=== PATIENT | male | born 1955 | race Caucasian/White ===

== ENCOUNTER 2018-11-17 09:21 | Emergency (ER) | payer OTHER ==
[~2018-11-17] VITALS: Ht 175.3 cm; Wt 134.0 kg
[2018-11-17] MEDS ORDERED: AMLODIPINE5 MG PO (09:32)
[2018-11-17] MEDS ORDERED: HYDROCHLOROT25 MG PO (09:32)
[2018-11-17] MEDS ORDERED: PAROXETINE10 MG PO (09:33)
[2018-11-17] MEDS ORDERED: ZITHROMAX250 MG PO ×2 (09:58→10:17)
[2018-11-17] MEDS ORDERED: TESSALON PER100 MG PO ×2 (09:58→10:17)
[2018-11-17] MEDS ORDERED: PROVENTIL108 MCG/AC IN ×2 (09:58→10:17)
[2018-11-17 10:22] VITALS: BP 158/83
== END 2018-11-17 10:22 | disposition home or self-care (01) | DRG 153 ==
LOC: ED 09:21
DX: J06.9 Acute upper respiratory infection, unspecified (principal); J40 Bronchitis, not specified as acute or chronic; R09.81 Nasal congestion; R09.89 Other specified symptoms and signs involving the circulatory and respiratory systems; R05 Cough; R51 Headache

== ENCOUNTER 2022-05-26 10:40 | Emergency (ER) | payer MEDICARE ==
[~2022-05-26] VITALS: Ht 175.3 cm; Wt 140.7 kg
[~2022-05-26 10:40] MED LIST: AMLODIPINE5 MG PO; ASPIRIN ADULT L81 M3 PO; BRILINTA90 MG PO; HYDROCHLOROT25 MG PO; LIPITOR80 M1 PO; METHOCARBAMOL500 MG PO; PAROXETINE10 MG PO; PROVENTIL108 MCG/AC IN; TESSALON PER100 MG PO; TOPROL XL25 M1 PO; ZITHROMAX250 MG PO
[2022-05-26 11:09] LABS: HEMATOCRIT 42.2 % (39.0-50.0); HEMOGLOBIN 14.1 g/dl (14.0-18.0); IMMATURE GRANULOCYTES 0.3 % (0.0-5.0); MEAN CELL VOLUME 99.5 fL CALC (80.0-100.0); MEAN CORPUSCULAR HGB 33.3 pG CALC (26.0-32.0); MEAN CORPUSCULAR HGB CONC 33.4 g/dL CAL (32.0-36.0); NEUT# 6.04 thou/uL (1.82-7.42); RED BLOOD COUNT 4.24 mill/uL (4.70-6.10); RED CELL DISTRI WIDTH 13.3 % (11.5-15.5)
[2022-05-26 11:17] LABS: PROTHROMBIN TIME 10.4 SECONDS (9.0-12.5)
[2022-05-26 11:21] LABS: ALBUMIN 3.5 g/dL (3.2-5.0); ALKALINE PHOSPHATASE 86 u/l (38-126); ANION GAP 8 (6-22 (CALC)); BILIRUBIN, TOTAL 0.4 mg/dL (0.0-1.4); BUN 10 mg/dL (8-23); BUN/CREATININE RATIO 13 (12-20 (CALC)); CARBON DIOXIDE 29 mmol/l (22-30); CHLORIDE 103 mmol/l (95-108); CREATININE 0.8 mg/dL (0.7-1.3); GFR FOR AFR.AMER. > 60 ML/MIN (>=60 (CALC)); GFR OTHER RACES > 60 ML/MIN (>=60 (CALC)); POTASSIUM 3.8 mmol/l (3.5-5.1); SGOT/AST 21 u/l (19-48); SODIUM 136 mmol/l (137-146); TOTAL PROTEIN 6.3 g/dL (6.3-8.2)
[2022-05-26 11:52] VITALS: BP 148/56
[2022-05-26 12:03] VITALS: BP 55/12
[2022-05-26 12:11] VITALS: BP 120/60
[2022-05-26] MEDS ORDERED: MEDROL4 M1 PO (12:30)
[2022-05-26] MEDS ORDERED: ACYCLOVIR800 MG PO (12:30)
[2022-05-26 12:31] VITALS: BP 127/62
[2022-05-26 12:35] VITALS: BP 127/62
[2022-05-26 12:35] LABS: URINE BILIRUBIN - DIPSTICK NEGATIVE (NEGATIVE); URINE BLOOD DIPSTICK NEGATIVE (NEGATIVE); URINE COLOR YELLOW; URINE GLUCOSE - DIPSTICK NEGATIVE (NEGATIVE); URINE KETONE NEGATIVE (NEGATIVE); URINE LEUK ESTERASE NEGATIVE (NEGATIVE); URINE PROTEIN - DIPSTICK NEGATIVE (NEG-TRACE); URINE SPECIFIC GRAVITY <=1.005; URINE UROBILINOGEN - DIPSTICK 0.2 E.U./dL (0.2)
[2022-05-26 12:37] LABS: URINE NITRITE - DIPSTICK NEGATIVE (Negative)
== END 2022-05-26 13:31 | disposition home or self-care (01) ==
LOC: ED 10:40
PROVIDERS: Internal Medicine
DX: G51.0 Bell's palsy (principal); I10 Essential (primary) hypertension; F41.9 Anxiety disorder, unspecified; I25.2 Old myocardial infarction; E78.5 Hyperlipidemia, unspecified
CPT/HCPCS: Q3014; Q9967

== ENCOUNTER 2022-05-30 13:49 | Observation (INO) | payer OTHER, MEDICARE ==
[~2022-05-30] VITALS: Ht 175.3 cm; Wt 140.7 kg
[2022-05-30] VITALS (28 sets, daily range): BP systolic 101–172; BP diastolic 45–124
[~2022-05-30 13:49] MED LIST changes: +ACYCLOVIR800 MG PO; +MEDROL4 M1 PO
--- NOTE | 2022-05-30 14:21 | NUR ---
PT AMBULATES TO ROOM 8 FOR EVAL OF WORSENING FACIAL DROOP WITH RECENT VISIT FOR BELLS PALSY
[2022-05-30 15:06] LABS: HEMATOCRIT 45.7 % (39.0-50.0); HEMOGLOBIN 14.9 g/dl (14.0-18.0); IMMATURE GRANULOCYTES 0.8 % (0.0-5.0); MEAN CELL VOLUME 101.1 fL CALC (80.0-100.0); MEAN CORPUSCULAR HGB CONC 32.6 g/dL CAL (32.0-36.0); NEUT# 12.87 thou/uL (1.82-7.42); RED BLOOD COUNT 4.52 mill/uL (4.70-6.10); RED CELL DISTRI WIDTH 13.5 % (11.5-15.5)
[2022-05-30 15:13] LABS: ALBUMIN 3.7 g/dL (3.2-5.0); ALKALINE PHOSPHATASE 92 u/l (38-126); ANION GAP 12 (6-22 (CALC)); BILIRUBIN, TOTAL 0.5 mg/dL (0.0-1.4); BUN 17 mg/dL (8-23); BUN/CREATININE RATIO 22 (12-20 (CALC)); CARBON DIOXIDE 26 mmol/l (22-30); CHLORIDE 102 mmol/l (95-108); CREATININE 0.8 mg/dL (0.7-1.3); GFR FOR AFR.AMER. > 60 ML/MIN (>=60 (CALC)); GFR OTHER RACES > 60 ML/MIN (>=60 (CALC)); SGOT/AST 32 u/l (19-48); SODIUM 135 mmol/l (137-146); TOTAL PROTEIN 6.9 g/dL (6.3-8.2)
--- NOTE | 2022-05-30 16:00 | NUR ---
no change from pprevious neuro assessment
--- NOTE | 2022-05-30 17:00 | NUR ---
no change from previous neuro assessment
--- NOTE | 2022-05-30 18:00 | NUR ---
no chnge from previous neuro assessment
[2022-05-30 18:51] LABS: C-REACTIVE PROTEIN < 0.5 mg/dL (0-0.9); CALCULATED LDLCHOLESTEROL 61 mg/dL (62-129 (CALC)); CHOLESTEROL HDL RATIO 4.5 (<4.4 (CALC)); HDL CHOLESTEROL 28 mg/dL (>=40); TOTAL CHOLESTEROL 126 mg/dl (0-199); TOTAL TRIGLYCERIDES 183 mg/dl (30-149); VLDL CHOLESTROL 37 mg/dl (4-45 (CALC))
--- NOTE | 2022-05-30 19:00 | NUR ---
no change from previous neuro assessment
--- NOTE | 2022-05-30 20:15 | NUR ---
PT ARRIVED FROM ER VIA WHEELCHAIR, ON ROOM AIR. PT ALERT AND ORIENTED. FOLLOWING COMMANDS. DENIES BEING IN ANY DISTRESS. PT DOES HAVE A SIGNIFICANT RIGHT SIDED FACIAL DROOP, PT UNABLE TO LIFT HIS BROW, BLINK HIS EYE OR SMILE ON THE RIGHT SIDE. EYE LOOKS QUITE IRRITADED. OFFERED WARM COMPRESS. PLANS TO BRING HIS EYE PATCH TO THE HOSPITAL THIS EVENING. PT DID PASS BEDSIDE SWALLOW EVALUATION AND DID PASS THE EVALUATION. PT CURRENTLY CHANGED FROM NPO TO CARDIAC . VITAL SIGNS WITHIN NORMAL LIMITS. CALL LIGHT AND PERSONAL BELONGINGS WTIHIN REACH. PT BEING CLOSELY MONITORED.
--- NOTE | 2022-05-30 22:00 | NUR ---
SHIFT REASSESSMENT - NO CHANGE IN PTS CONDITION AT THIS TIME. VITAL SIGNS WITHIN NORMAL LIMITS. SAFETY PRECAUTIONS ARE IN PLACE. CALL LIGHT AND PERSONAL BELONGINGS WITHIN REACH.
[2022-05-31] VITALS (42 sets, daily range): BP systolic 115–190; BP diastolic 45–81
--- NOTE | 2022-05-31 | NUR ---
SHIFT REASSESSMENT - NEORO ASSESSMENT COMPLETED. NO CHANGE IN PTS STATUS SINCE INITIAL ASSESSMENT. FACIAL DROOP REMAINS THE SAME. ARMS AND LEGS HAVE NO CHANGE IN SENSATION AND THERE IS NO DRIFT. WILL CONTINUE TO MONITOR.
--- NOTE | 2022-05-31 02:00 | NUR ---
SHIFT REASSESSMENT - PT UP OUT OF BED TO USE HIS URINAL. PT DENIES NEED FOR ASSISTANCE. DENIES PAIN. VITAL SIGNS WITHIN NORMAL LIMITS. CALL LIGHT AND SAFETY PRECAUTIONS ARE IN PLACE.
--- NOTE | 2022-05-31 04:00 | NUR ---
SHIFT REASSESSMENT - NEURO ASSESSMENT COMPLETE. NO CHANGE IN PTS CONDITION SINCE INITIAL ASSESSMENT. PT DENIES BEING IN ANY DISTRESS. ALERT AND ORIENTED, FOLLOWING COMMANDS. WILL CONTINUE TO MONITOR CLOSELY.
[2022-05-31 05:43] LABS: HEMATOCRIT 43.9 % (39.0-50.0); HEMOGLOBIN 14.3 g/dl (14.0-18.0); MEAN CELL VOLUME 101.2 fL CALC (80.0-100.0); MEAN CORPUSCULAR HGB 32.9 pG CALC (26.0-32.0); MEAN CORPUSCULAR HGB CONC 32.6 g/dL CAL (32.0-36.0); RED BLOOD COUNT 4.34 mill/uL (4.70-6.10); RED CELL DISTRI WIDTH 13.8 % (11.5-15.5)
[2022-05-31 05:55] LABS: ANION GAP 8 (6-22 (CALC)); BUN 17 mg/dL (8-23); BUN/CREATININE RATIO 21 (12-20 (CALC)); CARBON DIOXIDE 27 mmol/l (22-30); CHLORIDE 105 mmol/l (95-108); CREATININE 0.8 mg/dL (0.7-1.3); GFR FOR AFR.AMER. > 60 ML/MIN (>=60 (CALC)); GFR OTHER RACES > 60 ML/MIN (>=60 (CALC)); MAGNESIUM 2.1 mg/dL (1.6-2.3); POTASSIUM 4.1 mmol/l (3.5-5.1); SODIUM 136 mmol/l (137-146)
--- NOTE | 2022-05-31 08:00 | NUR ---
patient a/ox4, able to make needs known to staff. c/o pain but chronic pain" but stated "it's fine ill live". slight slur speech, right eye seems to not blink. USES EYE PATCH. LIGHT SENSTIVIE USES HIS SUN GLASSES AND LEAVES ROOM LIGHT OFF. FACIAL DROOP ON RIGHT SIDE AND SENSORY ISSUES ON THE RIGHT, RIGHT FEELS MORE NUMB THAN LEFT. NORMAL HEART SOUNDS. CLEAR LUNG SOUNDS. ACTIVE BOWEL SOUNDS. SOFT ROUND ABODMEN. NON TENDER ABDOMEN. NO EDEMA PRESENT AT THIS TIME. STRONG EQUAL HAND WASHER OFF. STRONG PULSES. SAFETY MEASURES IN PLACE. CALL LIGHT IN REACH WILL COTNINUE TO MONITOR PER [facility] POLICY.
--- NOTE | 2022-05-31 08:40 | NUR ---
GRE INSTRUCTOR ATTEMPTED TO SEE PT THIS AM. PT TO RADIOLOGY FOR LUMBAR PUNCTURE. WILL F/U WHEN RETURNED FROM PROCEDURE.
--- NOTE | 2022-05-31 11:11 | NUR ---
PT WAS TOO BIG FOR MRI EARLIER THIS MORNING, LUMBAR PUNCTURE BEING DONE
[2022-05-31 13:27] LABS: URINE BILIRUBIN - DIPSTICK NEGATIVE (NEGATIVE); URINE BLOOD DIPSTICK NEGATIVE (NEGATIVE); URINE COLOR YELLOW; URINE GLUCOSE - DIPSTICK NEGATIVE (NEGATIVE); URINE KETONE NEGATIVE (NEGATIVE); URINE LEUK ESTERASE NEGATIVE (NEGATIVE); URINE PH 6.5 (4.5-8.0); URINE PROTEIN - DIPSTICK NEGATIVE (NEG-TRACE); URINE SPECIFIC GRAVITY 1.015; URINE UROBILINOGEN - DIPSTICK 0.2 E.U./dL (0.2)
[2022-05-31 13:29] LABS: URINE NITRITE - DIPSTICK NEGATIVE (Negative)
[2022-05-31] MEDS ORDERED: LORTAB 5/3255 MG PO (14:45)
[2022-05-31 15:45] LABS: HEMATOCRIT 48.6 % (39.0-50.0); IMMATURE GRANULOCYTES 0.5 % (0.0-5.0); MEAN CORPUSCULAR HGB 32.9 pG CALC (26.0-32.0); MEAN CORPUSCULAR HGB CONC 32.9 g/dL CAL (32.0-36.0); NEUT# 15.16 thou/uL (1.82-7.42); RED BLOOD COUNT 4.86 mill/uL (4.70-6.10); RED CELL DISTRI WIDTH 13.6 % (11.5-15.5)
--- NOTE | 2022-05-31 16:10 | NUR ---
reviewed d/c paperwork with patient and at bedside. stated they both understood. gathered their belongings and paperwork. iv removed. stable.
--- NOTE | 2022-05-31 16:48 | NUR ---
amublated down to er entrance, stable, handled it well. driving.
== END 2022-05-31 16:00 | disposition home or self-care (01) | DRG 74 ==
LOC: ED 13:49 → ED-I 17:30 → ED 18:01 → ICU 18:02
PROVIDERS: Nurse Practitioner; ADMIT Hospitalist; ATTEND Hospitalist
PROC: 009U3ZX Drainage of Spinal Canal, Percutaneous Approach, Diagnostic (ICD-10-PCS; principal; 2022-05-31)
PROC: B01BZZZ Fluoroscopy of Spinal Cord (ICD-10-PCS; 2022-05-31)
DX: G51.0 Bell's palsy (principal); I10 Essential (primary) hypertension; F41.9 Anxiety disorder, unspecified; F32.A Depression, unspecified; E66.9 Obesity, unspecified; G47.30 Sleep apnea, unspecified; Z20.822 Contact with and (suspected) exposure to COVID-19
CPT/HCPCS: Q3014

== ENCOUNTER 2022-12-16 16:18 | Observation (INO) | payer OTHER, MEDICARE ==
[~2022-12-16] VITALS: Ht 175.3 cm; Wt 140.0 kg
[2022-12-16] VITALS (28 sets, daily range): BP systolic 92–188; BP diastolic 32–100
[~2022-12-16 16:18] MED LIST changes: +LORTAB 5/3255 MG PO
--- NOTE | 2022-12-16 16:40 | NUR ---
PATIENT TO ROOM 12
[2022-12-16 17:34] LABS: BASO% 0.2 % (0-3); IMMATURE GRANULOCYTES 0.2 % (0.0-5.0); LYMPH% 6.2 % (15-41); MEAN CELL VOLUME 102.1 fL CALC (80.0-100.0); MEAN CORPUSCULAR HGB 32.8 pG CALC (26.0-32.0); MEAN CORPUSCULAR HGB CONC 32.2 g/dL CAL (32.0-36.0); MONO% 5.7 % (2-13); NEUT# 14.4 thou/uL (1.82-7.42); NEUT% 87.7 % (42-76); RED BLOOD COUNT 3.9 mill/uL (4.70-6.10); RED CELL DISTRI WIDTH 13.5 % (11.5-15.5)
[2022-12-16 17:35] LABS: HEMATOCRIT 39.8 % (39.0-50.0); HEMOGLOBIN 12.8 g/dl (14.0-18.0)
--- NOTE | 2022-12-16 17:35 | NUR ---
Reassessment of patient completed. No distress noted.
[2022-12-16 17:45] LABS: ALBUMIN 3.6 g/dL (3.2-5.0); ALKALINE PHOSPHATASE 93 u/l (38-126); ANION GAP 8 (6-22 (CALC)); BILIRUBIN, TOTAL 0.8 mg/dL (0.2-1.3); BUN 16 mg/dL (8-23); BUN/CREATININE RATIO 16 (12-20 (CALC)); CARBON DIOXIDE 29 mmol/l (22-30); CHLORIDE 100 mmol/l (95-108); GFR FOR AFR.AMER. > 60 ML/MIN (>=60 (CALC)); GFR OTHER RACES > 60 ML/MIN (>=60 (CALC)); POTASSIUM 4.5 mmol/l (3.5-5.1); SGOT/AST 24 u/l (19-48); SODIUM 133 mmol/l (137-146); TOTAL PROTEIN 6.3 g/dL (6.3-8.2)
--- NOTE | 2022-12-16 19:03 | NUR ---
TRANSITION OF CARE BEDSIDE REPORT GIVEN TO ELVIS NORRIS
[2022-12-16 19:49] LABS: URINE BILIRUBIN - DIPSTICK NEGATIVE (NEGATIVE); URINE BLOOD DIPSTICK NEGATIVE (NEGATIVE); URINE COLOR YELLOW; URINE GLUCOSE - DIPSTICK NEGATIVE (NEGATIVE); URINE KETONE NEGATIVE (NEGATIVE); URINE LEUK ESTERASE NEGATIVE (NEGATIVE); URINE PROTEIN - DIPSTICK TRACE mg/dL (NEG-TRACE); URINE SPECIFIC GRAVITY 1.015; URINE UROBILINOGEN - DIPSTICK 0.2 E.U./dL (0.2)
[2022-12-16 19:57] LABS: URINE NITRITE - DIPSTICK NEGATIVE (Negative)
--- NOTE | 2022-12-16 20:31 | NUR ---
REPEAT EKG COMPLETED. BELONGINGS LIST COMPLETED.
[2022-12-16] MEDS ORDERED: ELIQUIS5 MG PO (20:33)
[2022-12-16] MEDS ORDERED: B-121000 MC1 PO (20:34)
[2022-12-16] MEDS ORDERED: FOLIC ACID1 MG PO (20:35)
[2022-12-16] MEDS ORDERED: GABAPENTIN100 MG PO (20:35)
[2022-12-16] MEDS ORDERED: HYDROXYZ HCL25 MG PO (20:36)
[2022-12-16] MEDS ORDERED: LUBRICANT EYE DROPS OD (20:37)
[2022-12-16] MEDS ORDERED: METOPROL TAR25 MG PO (20:37)
[2022-12-16] MEDS ORDERED: PAROXETINE20 MG PO (20:38)
[2022-12-16] MEDS ORDERED: ISOSORBIDE MON120 MG PO (20:41)
--- NOTE | 2022-12-16 22:29 | NUR ---
PATIENT WAITING ON BED ASSIGNMENT.
--- NOTE | 2022-12-16 23:18 | NUR ---
REPORT GIVEN TO ARETHA. PATIENT GOING TO ROOM 267 ON TELEMETRY.
--- NOTE | 2022-12-16 23:27 | NUR ---
PT ARRIVED TO MS @9144, VIA STRETCHER, ACCOMPANIED BY ER STAFF. REPORT RECEIVED FROM JR LEAL. PT ORIENTED TO ROOM AND CALL LIGHT USE. NO DISTRESS OR PAIN NOTED. ASSESMENT COMPLETED. PT A&OX3. EVEN AND UNLABORED RESPIRATIONS ON SHRUTHI. TELEMETRY IN PLACE. IV SITE HEALTHY AND PATENT. ACTIVE BOWEL SOUNDS X4 QUADRANTS. SAFETY PRECAUTIONS IN PLACE WITH CALL LIGHT IN REACH.
[2022-12-17] VITALS (8 sets, daily range): BP systolic 121–145; BP diastolic 45–70
--- NOTE | 2022-12-17 04:35 | NUR ---
PT RESTING ON BED WITH EYES CLOSED. VS OBTAINED AT THIS TIME. NO DISTRESS OR PAIN NOTED. NO VOICED NEED AT THE MOMENT. SAFETY PRECAUTIONS IN PLACE WITH CALL LIGHT IN REACH.
[2022-12-17 07:21] LABS: CHOLESTEROL HDL RATIO 4.2 (<4.4 (CALC)); MAGNESIUM 1.7 mg/dL (1.6-2.3)
--- NOTE | 2022-12-17 08:00 | NUR ---
Patient alert and oriented x3. Does not refer pain at this time. Assessment head-to toe complete. pt is educated aboud medications and nursing plan for today pt refer understan. Safety and fall precauttions in place. Call light within in reach.
[2022-12-17 11:39] LABS: BASO% 0.2 % (0-3); HEMATOCRIT 39.6 % (39.0-50.0); HEMOGLOBIN 13.1 g/dl (14.0-18.0); IMMATURE GRANULOCYTES 0.3 % (0.0-5.0); LYMPH% 8.9 % (15-41); MEAN CORPUSCULAR HGB 33.1 pG CALC (26.0-32.0); MEAN CORPUSCULAR HGB CONC 33.1 g/dL CAL (32.0-36.0); MONO% 6.3 % (2-13); NEUT# 9.49 thou/uL (1.82-7.42); NEUT% 84.3 % (42-76); RED BLOOD COUNT 3.96 mill/uL (4.70-6.10); RED CELL DISTRI WIDTH 13.9 % (11.5-15.5)
--- NOTE | 2022-12-17 12:00 | NUR ---
PATIENT RESTING IN BED STABLE AT THIS TIME.
--- NOTE | 2022-12-17 15:00 | NUR ---
Patient walks to the bathroom and his HR rises to 140 beats per minute. Coddi is informed who issues an order for EKG, ECHO and consultation with a propagation worker.
--- NOTE | 2022-12-17 16:54 | NUR ---
PT RESTING IN SEMI FOWLERS POSITION. RESPIRATIONS EVEN AND UNLABORED ON ROOM AIR. PT DENIES OF ANY NEEDS. HR BETTER AFTER IV LOPRESSOR. ALL SAFTEY PRECAUTIONS ARE IN PLACE WITH CALL LIGHT IN REACH. BED ALARM ACTIVE. ECHO TECHNIQUE IN THE PT ROOM NOW.
--- NOTE | 2022-12-17 20:17 | NUR ---
RECEIVED REPORT FROM JR SAL. PT SITTING ON BED LOW FOWLERS POSITION. A&O X3. C-PAP FROM HOME IN PLACE. ASSESSMENT COMPLETED. TELEMETRY IN PLACE. IV SITE HEALTHY AND PATENT INFUSING FLUIDS PER ORDER. SCHEDULED MEDS ADMINISTERED. PT ASSSITED TO BATHROOM; GREEN LIQUID STOOL. PT BACK IN BED. PT ABLE TO PUT C-PAP IN PLACE. SAFETY PRECAUTIONS IN PLACE WITH CALL LIGHT IN REACH.
--- NOTE | 2022-12-17 22:13 | NUR ---
RAPID RESPONSE INITIATED ON PATIENT WHO WAS IN AN IRREGULAR RHYTHM. CODE BLUE INITIATED AFTER ARRIVAL TO ROOM. ER PHYSICIAN ARRIVED AND CODE TEAM INCLUDING CPR IN PROGRESS. DR. VIVAR INFORMED AND SPOUSE, OPAL, INFORMED OF PATIENT CONDITION.
--- NOTE | 2022-12-17 22:13 | NUR ---
RESPONDED TO RAPID RESPONSE PAGE. PT FOUND UNRESPONSIVE. NO PULSE, NO RESPIRATIONS. MARLEN MOBLEY CALLED AND INITIATED. REFER TO MARLEN MOBLEY DATA SHEET.
--- NOTE | 2022-12-18 01:42 | NUR ---
HOME HERE TO TAKE PT'S BODY, LEFT @ [id number].
== END 2022-12-17 22:21 | disposition expired | DRG 313 ==
LOC: ED 16:18 → ED-I 19:00 → ED 19:00 → MS2 20:44
PROVIDERS: Family Medicine; Nurse Practitioner; Nurse Practitioner Family; ADMIT Internal Medicine; ATTEND Internal Medicine
PROC: 0BH17EZ Insertion of Endotracheal Airway into Trachea, Via Natural or Artificial Opening (ICD-10-PCS; principal; 2022-12-17)
PROC: 5A1221J Performance of Cardiac Output, Continuous, Automated (ICD-10-PCS; 2022-12-17)
DX: R07.9 Chest pain, unspecified (principal); A04.5 Campylobacter enteritis; I46.9 Cardiac arrest, cause unspecified; I10 Essential (primary) hypertension; I48.91 Unspecified atrial fibrillation; J44.9 Chronic obstructive pulmonary disease, unspecified; I25.10 Atherosclerotic heart disease of native coronary artery without angina pectoris; E78.5 Hyperlipidemia, unspecified; F41.9 Anxiety disorder, unspecified; G47.30 Sleep apnea, unspecified; Z79.01 Long term (current) use of anticoagulants; Z95.818 Presence of other cardiac implants and grafts; Z20.822 Contact with and (suspected) exposure to COVID-19
CPT/HCPCS: J0282